=== PATIENT | female | born 1985 | race Caucasian/White ===

== ENCOUNTER 2017-04-16 09:27 | Inpatient (IN) | payer MEDICAID ==
[2017-04-16] MEDS ORDERED: MISOPROSTOL 200 MCG TAB PR ×2 (10:30→19:00)
[2017-04-16] MEDS ORDERED: OXYTOCIN 30 UNITS/LR 500 ML IV ×2 (10:30→19:00)
[2017-04-16] MEDS ORDERED: METHYLERGONOVINE 0.2 MG INJ IM ×2 (10:30→19:00)
[2017-04-16] MEDS ORDERED: CARBOPROST 250 MCG INJ IM ×2 (10:30→19:00)
[2017-04-16] MEDS ORDERED: ONDANSETRON 4 MG INJ ×2 (11:03→13:57)
[2017-04-16] MEDS: LACTATED RINGER'S 1,000 ML IV ×2 (11:05→20:10)
[2017-04-16 11:13] LABS: ADD MAN DIFF? NO
[2017-04-16 11:22] LABS: WHITE BLOOD COUNT 11.2 10^3/ul (4.8-10.8)
[2017-04-16 11:22] LABS: BASOPHILS % 0.3 % (0.0-2.0); EOSINOPHILS % 0.4 % (0.0-7.0); HEMATOCRIT 34.8 % (37.0-47.0); HEMOGLOBIN 11.8 g/dl (12.0-16.0); LYMPHOCYTES # 1.4 10^3/ul (0.8-2.9); LYMPHOCYTES % 12.1 % (15.0-51.0); MEAN CORPUSCULAR HEMOGLOBIN 28.6 pg (29.0-33.0); MEAN CORPUSCULAR HGB CONC 33.9 g/dl (32.0-37.0); MEAN CORPUSCULAR VOLUME 84.5 fl (82.0-101.0); MEAN PLATELET VOLUME 10.4 fl (7.4-10.4); MONOCYTE # 0.4 10^3/ul (0.3-0.9); MONOCYTES % 3.9 % (0.0-11.0); NEUTROPHIL # 9.3 10^3/ul (1.6-7.5); NEUTROPHILS % 82.9 % (39.0-77.0); PLATELET COUNT 190 10^3/UL (140-415); RED BLOOD COUNT 4.12 10^6/ul (4.20-5.40); RED CELL DISTRIBUTION WIDTH 13.3 % (11.5-14.5)
[2017-04-16] MEDS: CITRIC ACID/SODIUM CITRATE 15 ML CUP PO (11:24)
[2017-04-16] MEDS: ONDANSETRON 4 MG INJ IV ×2 (11:24→16:13)
[2017-04-16 11:37] LABS: INR 0.92; PROTIME 12.4 Sec (11.9-14.9)
[2017-04-16 11:38] LABS: PARTIAL THROMBOPLASTIN TIME 29.5 Sec (25.0-35.0)
[2017-04-16] MEDS ORDERED: morphine SULFATE/PF (10 MG/10 ML) INJ (13:29)
[2017-04-16] MEDS ORDERED: PHENYLephrine (100 MCG/ML) 5ML SYG (13:29)
[2017-04-16] MEDS ORDERED: OXYTOCIN 10 UNIT INJ (13:29)
[2017-04-16] MEDS ORDERED: DEXAMETHASONE 4 MG/ML 1 ML INJ (13:57)
[2017-04-16] MEDS ORDERED: METOCLOPRAMIDE 10 MG INJ (13:57)
[2017-04-16] MEDS ORDERED: KETOROLAC 30 MG INJ (13:57)
[2017-04-16] MEDS: OXYTOCIN 30 UNITS/LR 500 ML IV ×2 (14:55→16:15)
[2017-04-16] MEDS: CEFAZOLIN 2 GM/50 ML (PMX) 50 ML IV ×2 (15:06→21:42)
[2017-04-16] MEDS ORDERED: DIPHENHYDRAMINE 50 MG INJ IV (16:00)
[2017-04-16] MEDS ORDERED: morphine 4 MG/ML VIAL IV (16:00)
[2017-04-16] MEDS ORDERED: NALOXONE (0.4 MG/ML) INJ IV (16:00)
[2017-04-16] MEDS ORDERED: HYDROmorphONE 0.5 MG/0.5 ML SYG IV ×2 (16:00)
[2017-04-16] MEDS ORDERED: ACETAMINOPHEN 500 MG TAB PO (16:00)
[2017-04-16] MEDS ORDERED: NALBUPHINE HCL (10 MG/1 ML) INJ IV (16:00)
[2017-04-16] MEDS ORDERED: HYDROCODONE/APAP (5/325) TAB PO (16:00)
[2017-04-16] MEDS ORDERED: morphine 2 MG INJ IV (16:00)
[2017-04-16] MEDS ORDERED: NA PHOSPHATE/BIPHOS 133 ML ENEMA PR (19:00)
[2017-04-16] MEDS: SENNA/DOCUSATE NA (8.6MG/50MG) TAB PO (21:00)
[2017-04-16] MEDS: IBUPROFEN 800 MG TAB PO (22:00)
[2017-04-16 22:35] LABS: RAPID PLASMA REAGIN NONREACTIVE (NR)
[2017-04-17] MEDS: LACTATED RINGER'S 1,000 ML IV ×3 (04:45→18:39)
[2017-04-17] MEDS: CLINDAMYCIN 300 MG CAP PO ×5 (05:29→23:35)
[2017-04-17] MEDS: CEFAZOLIN 2 GM/50 ML (PMX) 50 ML IV ×2 (05:29→13:15)
[2017-04-17] MEDS: IBUPROFEN 800 MG TAB PO ×3 (06:00→21:34)
[2017-04-17 08:03] LABS: ADD MAN DIFF? NO
[2017-04-17 08:18] LABS: BASOPHILS % 0.2 % (0.0-2.0); EOSINOPHILS % 0.1 % (0.0-7.0); HEMATOCRIT 31.4 % (37.0-47.0); HEMOGLOBIN 10.8 g/dl (12.0-16.0); LYMPHOCYTES # 2.3 10^3/ul (0.8-2.9); MEAN CORPUSCULAR HEMOGLOBIN 29.7 pg (29.0-33.0); MEAN CORPUSCULAR HGB CONC 34.4 g/dl (32.0-37.0); MEAN CORPUSCULAR VOLUME 86.3 fl (82.0-101.0); MEAN PLATELET VOLUME 10.1 fl (7.4-10.4); MONOCYTE # 0.9 10^3/ul (0.3-0.9); MONOCYTES % 5.4 % (0.0-11.0); NEUTROPHIL # 13.2 10^3/ul (1.6-7.5); PLATELET COUNT 188 10^3/UL (140-415); RED BLOOD COUNT 3.64 10^6/ul (4.20-5.40); RED CELL DISTRIBUTION WIDTH 13.5 % (11.5-14.5)
[2017-04-17 08:18] LABS: WHITE BLOOD COUNT 16.5 10^3/ul (4.8-10.8)
[2017-04-17] MEDS: SENNA/DOCUSATE NA (8.6MG/50MG) TAB PO ×2 (09:44→21:33)
[2017-04-17] MEDS: BISACODYL 10 MG SUPP PR (10:00)
[2017-04-17] MEDS: KETOROLAC 30 MG INJ IV (12:08)
[2017-04-17] MEDS: OXYCODONE/ACETAMINOPHEN (5/325) TAB PO (16:34)
[2017-04-18] MEDS: LACTATED RINGER'S 1,000 ML IV ×2 (02:39→10:39)
[2017-04-18] MEDS: IBUPROFEN 800 MG TAB PO ×3 (05:29→21:30)
[2017-04-18] MEDS: CLINDAMYCIN 300 MG CAP PO ×3 (05:29→17:46)
[2017-04-18] MEDS: SENNA/DOCUSATE NA (8.6MG/50MG) TAB PO ×2 (09:40→21:21)
[2017-04-18 16:26] LABS: ADD MAN DIFF? NO
[2017-04-18 16:29] LABS: WHITE BLOOD COUNT 14.2 10^3/ul (4.8-10.8)
[2017-04-18 16:29] LABS: BASOPHILS % 0.1 % (0.0-2.0); EOSINOPHILS # 0.2 10^3/ul (0.0-0.5); EOSINOPHILS % 1.3 % (0.0-7.0); HEMATOCRIT 35.7 % (37.0-47.0); HEMOGLOBIN 11.9 g/dl (12.0-16.0); LYMPHOCYTES # 1.5 10^3/ul (0.8-2.9); LYMPHOCYTES % 10.5 % (15.0-51.0); MEAN CORPUSCULAR HEMOGLOBIN 29.2 pg (29.0-33.0); MEAN CORPUSCULAR HGB CONC 33.3 g/dl (32.0-37.0); MEAN CORPUSCULAR VOLUME 87.5 fl (82.0-101.0); MEAN PLATELET VOLUME 10.8 fl (7.4-10.4); MONOCYTE # 0.6 10^3/ul (0.3-0.9); MONOCYTES % 4.4 % (0.0-11.0); NEUTROPHIL # 11.9 10^3/ul (1.6-7.5); NEUTROPHILS % 83.3 % (39.0-77.0); PLATELET COUNT 182 10^3/UL (140-415); RED BLOOD COUNT 4.08 10^6/ul (4.20-5.40); RED CELL DISTRIBUTION WIDTH 13.7 % (11.5-14.5)
[2017-04-18 16:45] LABS: POSITIVE DIFF @See below
[2017-04-18] MEDS: LANOLIN 7 GM TUBE TOP (19:13)
[2017-04-18 21:51] LABS: HEPATITIS B SURFACE ANTIGEN NEGATIVE (NEGATIVE)
[2017-04-18] MEDS: HYDROCODONE/APAP (5/325) TAB PO (23:07)
[2017-04-19] MEDS: CLINDAMYCIN 300 MG CAP PO ×3 (00:12→12:34)
[2017-04-19] MEDS: LEVOTHYROXINE 25 MCG TAB PO (05:48)
[2017-04-19] MEDS: IBUPROFEN 800 MG TAB PO (05:48)
[2017-04-19] MEDS ORDERED: BISACODYL (EC) 5 MG TAB PO (05:53)
[2017-04-19] MEDS: BISACODYL 10 MG SUPP PR (06:33)
[2017-04-19] MEDS ORDERED: DIPHTH/TET/ACEL PERTUSS (ADULT) 0.5 ML VIAL IM* (09:00)
[2017-04-19] MEDS: SENNA/DOCUSATE NA (8.6MG/50MG) TAB PO (09:00)
[2017-04-19] MEDS: HYDROCODONE/APAP (5/325) TAB PO (13:20)
== END 2017-04-19 13:20 | disposition home or self-care (01) | DRG 766 ==
LOC: L-D 09:27 → PP1 17:59
PROVIDERS: Obstetrics & Gynecology
PROC: 10D00Z1 Extraction of Products of Conception, Low, Open Approach (ICD-10-PCS; principal; 2017-04-16 12:30)
PROC: 0UB70ZZ Excision of Bilateral Fallopian Tubes, Open Approach (ICD-10-PCS; 2017-04-16 12:30)
DX: O34.211 Maternal care for low transverse scar from previous cesarean delivery (principal); Z30.2 Encounter for sterilization; Z3A.39 39 weeks gestation of pregnancy; Z37.0 Single live birth
CPT/HCPCS: 85025; 85610; 85730; 86592; 86850; 86900; 86901; 86920; 87340; 88302; 99464